=== PATIENT | female | born 1985 | race Caucasian/White ===

== ENCOUNTER 2016-09-27 14:06 | Emergency (ER) | payer MEDICAID ==
[2016-09-27] MEDS ORDERED: ONDANSETRON HCL INJ/PF 4 MG/2 ML SDV IV ONE ×2 (14:48→20:06)
[2016-09-27] MEDS ORDERED: HYDROMORPHONE HCL INJ/PF 2 MG/ML AMPULE IV ONE ×4 (14:48→21:54)
[2016-09-27] MEDS ORDERED: NORMAL SALINE 1000 ML 1,000 ML IV PRN ×3 (14:49→20:06)
[2016-09-27] MEDS ORDERED: LORAZEPAM 1 MG TABLET PO ONE (14:49)
--- NOTE | 2016-09-27 14:52 | ER Document Report ---
ED General - General Stated Complaint: NAUSEA/VOMITING Time Seen by Provider: 09/27/16 14:47 Mode of Arrival: Medic Information source: Patient Notes: This is a 30-year-old female with a history of diabetes, diabetic gastroparesis , hypothyroidism who is brought in by ambulance with nausea, vomiting, epigastric pain since yesterday. Patient states she's not been able to tolerate fluids. Allergies: Reglan, morphine, Benadryl Past surgical history: Call the, appendectomy, bilateral tubal ligation TRAVEL OUTSIDE OF THE [place] IN LAST 30 DAYS: No - HPI Onset: Yesterday Onset/Duration: Gradual Quality of pain: Dull Severity: Moderate Pain Level: 3 Associated symptoms: Nausea, Vomiting. denies: Chills, Diarrhea, Fever, Shortness of breath Exacerbated by: Denies Relieved by: Denies Similar symptoms previously: Yes Recently seen / treated by doctor: No - Related Data Allergies/Adverse Reactions: ketorolac tromethamine [From Toradol] Allergy (Verified 08/11/15 19:23) metoclopramide HCl [From Reglan] Allergy (Verified 08/11/15 19:23) morphine [Morphine] Allergy (Verified 08/11/15 19:23) diphenhydramine HCl [From Benadryl] Adverse Reaction (Verified 08/11/15 19:23) Past Medical History - General Information source: Patient - Social History Smoking Status: Never Smoker Cigarette use (# per day): No Chew tobacco use (# tins/day): No Frequency of alcohol use: None Drug Abuse: None Lives with: Family Family History: Reviewed & Not Pertinent Patient has suicidal ideation: No Patient has homicidal ideation: No - Past Medical History Cardiac Medical History: Reports: None Pulmonary Medical History: Reports: None EENT Medical History: Reports: None Neurological Medical History: Reports: None Endocrine Medical History: Reports: Hx Diabetes Mellitus Type 1, Hx Hypothyroidism Renal/ Medical History: Reports: None Malignancy Medical History: Reports: None GI Medical History: Reports: Other - Diabetic gastroparesis Psychiatric Medical History: Reports: Hx Anxiety, Hx Depression Infectious Medical History: Reports: None Past Surgical History: Reports: Hx Abdominal Surgery - lap x2 for endometriosis , Hx Appendectomy, Hx Breast Surgery - right lumpectomy x2, Hx Cholecystectomy - Immunizations Hx Diphtheria, Pertussis, Tetanus Vaccination: Yes Review of Systems - Review of Systems Constitutional: denies: Chills, Fever EENT: No symptoms reported Cardiovascular: No symptoms reported Respiratory: No symptoms reported Gastrointestinal: See HPI Genitourinary: No symptoms reported Female Genitourinary: No symptoms reported Musculoskeletal: No symptoms reported Skin: No symptoms reported Hematologic/Lymphatic: No symptoms reported Neurological/Psychological: No symptoms reported Physical Exam - Vital signs Vitals: Pulse Resp BP Pulse Ox 78 18 138/89 H 100 09/27/16 15:52 09/27/16 15:52 09/27/16 15:52 09/27/16 15:52 Notes: Physical exam: GENERAL: 30-year-old female, alert and oriented 3, appears anxious, stable vital signs HEAD: Atraumatic, normocephalic. EYES: Pupils equal round and reactive to light, extraocular movements intact, sclera anicteric, conjunctiva are normal. ENT: TMs normal, nares patent, oropharynx clear without exudates. Moist mucous membranes. NECK: Normal range of motion, supple without lymphadenopathy or JVD. LUNGS: Breath sounds clear to auscultation bilaterally and equal. No wheezes rales or rhonchi. HEART: Regular rate and rhythm without murmurs, rubs or gallops. ABDOMEN: Soft, normoactive bowel sounds. No tenderness to palpation. No guarding, no rebound. No masses appreciated. EXTREMITIES: Normal range of motion, no pitting or edema. No clubbing or cyanosis. NEUROLOGICAL: Cranial nerves II through XII grossly intact. Normal speech, normal gait. PSYCH: Normal mood, normal affect. SKIN: Warm, Dry, normal turgor, no rashes or lesions noted. Course - Re-evaluation Re-evalutation: 09/27/16 22:11 Note: Patient is feeling better. She has not had complete resolution but she has not vomited since being here. She is ambulating around the room. She looks pretty good at this point. Her repeat Accu-Chek was 480 and normally she states she would cover herself with approximately 7 units of subcutaneous insulin. We will give her that now (she does not have her pump with her). She will follow-up with her primary care doctor and states very. I've given her numbers of other primary care doctors affiliated with the hospital if she has any difficulty getting in with that doctor. Additionally, she has had follow- up for this gastroparesis with a history of an EGD in the past from a GI doctor in [place]. She is now in this area and I will give her the number of the GI doctor affiliated with the hospital. The CT scan showed a dilated gastric consistent with symptoms of diabetic gastroparesis. On physical exam, the patient does not have any evidence of obstruction. She is agreeable to going home and will see how she does over the next day or 2. 09/27/16 22:27 - Vital Signs Vital signs: Temp Pulse Resp BP Pulse Ox 78 18 138/89 H 100 09/27/16 15:52 09/27/16 15:52 09/27/16 15:52 09/27/16 15:52 - Laboratory Result Diagrams: 09/27/16 15:15 09/27/16 15:15 Laboratory results interpreted by me: 09/27/16 09/27/16 09/27/16 15:15 15:15 15:15 WBC 17.2 H RDW 14.2 H Seg Neutrophils % 90.3 H Lymphocytes % 7.0 L Monocytes % 2.3 L Absolute Neutrophils 15.6 H PT 16.0 H Sodium 136.6 L Chloride 96 L Carbon Dioxide 12 L Anion Gap 29 H Glucose 351 H Direct Bilirubin 0.5 H Albumin 5.1 H Urine Protein Urine Glucose (UA) Urine Ketones Urine Blood 09/27/16 15:15 WBC RDW Seg Neutrophils % Lymphocytes % Monocytes % Absolute Neutrophils PT Sodium Chloride Carbon Dioxide Anion Gap Glucose Direct Bilirubin Albumin Urine Protein 30 H Urine Glucose (UA) >=500 H Urine Ketones 80 H Urine Blood SMALL H - Diagnostic Test Radiology reviewed: Image reviewed, Reports reviewed - CT scan shows no obvious obstruction - EKG Interpretation by Me Rate: Normal Rhythm: NSR - EKG shows normal sinus rhythm with a ventricular rate of 74, no acute ST-T wave changes Discharge - Discharge Clinical Impression: diabetic gastroparesis Condition: Stable Disposition: HOME, SELF-CARE Instructions: Nausea or Vomiting, Nonspecific ([facility]) Additional Instructions: Recommendations: Take the Zofran or Phenergan for nausea. Take the oxycodone for pain. Take Pepcid as prescribed. Advance diet slowly: Small amounts of fluids often. Advance as tolerated. Return to the emergency room for worsening pain, persistent vomiting. Follow-up with a primary care doctor in the area: Below is a list of primary care doctors affiliated with the [facility]: Dr. Ying Conley [address], [place] [address] [phone] Dr Spencer Address: [address] [place] [address] [place] [address] Dr De La Rosa Address: [address] [place] [address] [place] [address] Follow-up with a GI doctor: I left the number for Dr. Odom who is a GI doctor who works with the hospital. Prescriptions: Oxycodone HCl 5 mg PO Q6HP PRN #25 tablet PRN Reason: Promethazine HCl [Phenergan 25 mg Supp.rect] 1 supp LA Q6H #12 supp.rect
[2016-09-27] MEDS ORDERED: LIDOCAINE 2% VISCOUS SOLN 20 ML UDCUP PO ONE ×2 (15:35→20:22)
[2016-09-27] MEDS ORDERED: MAG HYDROX/AL HYDROX/SIMETH SUSP 30 ML UDCUP PO ONE ×2 (15:35→20:22)
[2016-09-27] MEDS ORDERED: FAMOTIDINE INJ/PF 20 MG/2 ML SDV IV ONE (15:36)
[2016-09-27 15:39] LABS: APPEARANCE,URINE CLEAR; BILIRUBIN,URINE NEGATIVE (NEGATIVE); GLUCOSE, URINE >=500 mg/dL (NEGATIVE); KETONES,URINE 80 mg/dL (NEGATIVE); LEUKOCYTE ESTERASE,URINE NEGATIVE (NEGATIVE); NITRITE,URINE NEGATIVE (NEGATIVE); PROTEIN,URINE 30 mg/dL (NEGATIVE); URINE SPECIFIC GRAVITY 1.012; UROBILINOGEN,URINE NEGATIVE mg/dL (<2.0)
[2016-09-27 15:50] LABS: ABSOLUTE BASOPHILS # (AUTO) 0.1 10^3/uL (0.0-0.2); ABSOLUTE LYMPHOCYTES (AUTO) 1.2 10^3/uL (0.5-4.7); ABSOLUTE MONOCYTES (AUTO) 0.4 10^3/uL (0.1-1.4); ABSOLUTE NEUT (AUTO) 15.6 10^3/uL (1.7-8.2); BASOPHILS % (AUTO) 0.3 % (0-2); EOSINOPHILS % (AUTO) 0.1 % (0-6); HEMOGLOBIN 14.5 g/dL (12.0-15.5); HGB HCT DIFFERENCE -0.5; MEAN CORPUSCULAR HEMOGLOBIN 31.2 pg (27.0-33.4); MEAN CORPUSCULAR VOLUME 94 fl (80-97); MONOCYTES % (AUTO) 2.3 % (3-13); RED BLOOD COUNT 4.66 10^6/uL (3.72-5.28); RED CELL DISTRIBUTION WIDTH 14.2 % (11.5-14.0); SEGMENTED NEUTROPHILS % (AUTO) 90.3 % (42-78); WHITE BLOOD COUNT 17.2 10^3/uL (4.0-10.5)
[2016-09-27 15:57] LABS: ALANINE AMINOTRANSFERASE 34 U/L (9-52); ALBUMIN 5.1 g/dL (3.5-5.0); ALKALINE PHOSPHATASE 84 U/L (38-126); ASPARTATE AMINO TRANSFERASE 26 U/L (14-36); BILIRUBIN,DIRECT 0.5 mg/dL (0.0-0.4); BLOOD UREA NITROGEN 12 mg/dL (7-20); CALCIUM 9.6 mg/dL (8.4-10.2); CREATININE RESULT 0.93 mg/dL (0.52-1.25); GLUCOSE 351 mg/dL (75-110); LIPASE 62.9 U/L (23-300); MAGNESIUM 1.9 mg/dL (1.6-2.3); TOTAL PROTEIN 8.1 g/dL (6.3-8.2)
[2016-09-27 16:15] LABS: ANION GAP 29 (5-19)
[2016-09-27 16:16] LABS: CARBON DIOXIDE 12 mmol/L (22-30); CHLORIDE 96 mmol/L (98-107); POTASSIUM 4.1 mmol/L (3.6-5.0); SODIUM 136.6 mmol/L (137-145)
[2016-09-27] MEDS ORDERED: PROMETHAZINE HCL 25 MG TABLET PO ONE (16:42)
[2016-09-27] MEDS ORDERED: PROMETHAZINE HCL 25 MG SUPP.RECT PR ONE (21:53)
[2016-09-27] MEDS ORDERED: INSULIN REG, HUMAN 100 UNIT/ML 3 ML VIAL (PYX) SUBCUT ONE (22:11)
[2016-09-27 22:57] VITALS: BP 114/72
--- NOTE | 2016-09-28 13:11 | EKG REPORT ---
SEVERITY:- NORMAL ECG - SINUS RHYTHM : Confirmed by: Magalie Moreno 28-Sep-2016 13:10:29
== END 2016-09-27 22:33 | disposition home or self-care (01) ==
LOC: ER 14:06
DX: E10.43 Type 1 diabetes mellitus with diabetic autonomic (poly)neuropathy (principal); K31.84 Gastroparesis; R11.2 Nausea with vomiting, unspecified; R10.13 Epigastric pain; Z88.5 Allergy status to narcotic agent; Z88.8 Allergy status to other drugs, medicaments and biological substances; Z90.49 Acquired absence of other specified parts of digestive tract
CPT/HCPCS: 93005; 96376; 99285; 96361; 96374; 96375; 36415; 82962; 83690; 83735; 85025; 85610; 80053; 81001; 71010; 74177; 93010; J3490 ×4; J1170; J1815; J2405; J7030; S0028

== ENCOUNTER 2016-09-29 11:41 | Inpatient (IN) | payer MEDICAID ==
[2016-09-29] MEDS ORDERED: NORMAL SALINE 1000 ML 2,000 ML IV ONE (11:43)
--- NOTE | 2016-09-29 12:06 | ER Document Report ---
ED Blood Sugar Problem - General Chief Complaint: High Blood Sugar Stated Complaint: BLOOD PRESSURE PROBELM Time Seen by Provider: 09/29/16 11:43 Mode of Arrival: Medic Information source: Patient Notes: 30 yo insulin dependent diabetic female insulin pump fell off yesterday at home , boyfriend does not know how to replace it. Pt has persostamt upper abdominal pain with vomiting and diarrhea. Seen in ER 2 days ago and dx gastroparesis but has gotten worse since. Has not been in DKA for a long time. She is Tachypneic, tachycardic, hypertensive, and dehydrated. Smells of acetone. TRAVEL OUTSIDE OF THE [place] IN LAST 30 DAYS: No - Related Data Allergies/Adverse Reactions: ketorolac tromethamine [From Toradol] Allergy (Verified 08/11/15 19:23) metoclopramide HCl [From Reglan] Allergy (Verified 08/11/15 19:23) morphine [Morphine] Allergy (Verified 08/11/15 19:23) diphenhydramine HCl [From Benadryl] Adverse Reaction (Verified 08/11/15 19:23) Home Medications: Current Home Medications Gabapentin [Neurontin 300 mg Capsule] 300 mg PO QHS 09/29/16 [History] Insulin Aspart [Novolog Insulin 100 Unit/1 ml 10 ml] 0 unit SUBCUT ASDIR PRN [History] Levothyroxine Sodium [Synthroid] 250 mcg PO DAILY 09/29/16 [History] Oxycodone HCl [Oxy-Ir 5 mg Tablet] 5 mg PO Q6HP PRN 09/29/16 [History] Promethazine HCl [Phenergan 25 mg Supp.rect] 25 mg NM Q6HP PRN 09/29/16 [History ] Past Medical History - General Information source: Patient - Social History Smoking Status: Never Smoker Frequency of alcohol use: None Drug Abuse: None Lives with: Family Family History: Reviewed & Not Pertinent Endocrine Medical History: Reports: Hx Diabetes Mellitus Type 1, Hx Hypothyroidism Psychiatric Medical History: Reports: Hx Anxiety, Hx Depression Past Surgical History: Reports: Hx Abdominal Surgery - lap x2 for endometriosis , Hx Appendectomy, Hx Breast Surgery - right lumpectomy x2, Hx Cholecystectomy - Immunizations Hx Diphtheria, Pertussis, Tetanus Vaccination: Yes Review of Systems - Review of Systems Constitutional: See HPI EENT: No symptoms reported Cardiovascular: No symptoms reported Respiratory: See HPI Gastrointestinal: See HPI Genitourinary: No symptoms reported Female Genitourinary: No symptoms reported Musculoskeletal: No symptoms reported Skin: No symptoms reported Hematologic/Lymphatic: No symptoms reported Neurological/Psychological: No symptoms reported Physical Exam - Vital signs Vitals: Temp Pulse Resp BP Pulse Ox 94.2 F L 89 32 H 155/89 H 100 09/29/16 11:44 09/29/16 11:44 09/29/16 11:44 09/29/16 11:44 09/29/16 11:44 Interpretation: Tachypneic - General General appearance: Alert, Anxious - HEENT Head: Normocephalic, Atraumatic Eyes: Normal Conjunctiva: Normal Pupils: PERRL Mucous membranes: Dry Pharynx: Normal Neck: Supple. No: Lymphadenopathy - Respiratory Respiratory status: No respiratory distress Chest status: Nontender Breath sounds: Normal Chest palpation: Normal - Cardiovascular Rhythm: Regular Heart sounds: Normal auscultation Murmur: No - Abdominal Inspection: Normal Distension: No distension Bowel sounds: Normal Tenderness: Tender - epigastrum Organomegaly: No organomegaly. No: Hepatomegaly, Splenomegaly - Back Back: Normal, Nontender. No: CVA tenderness - Extremities General upper extremity: Normal inspection, Nontender, Normal color, Normal ROM , Normal temperature General lower extremity: Normal inspection, Nontender, Normal color, Normal ROM , Normal temperature, Normal weight bearing. No: Vinicius's sign - Neurological Neuro grossly intact: Yes Cognition: Normal Orientation: AAOx4 [place] Coma Scale Eye Opening: Spontaneous [place] Coma Scale Verbal: Oriented [place] Coma Scale Motor: Obeys Commands [place] Coma Scale Total: 15 Speech: Normal Motor strength normal: LUE, RUE, LLE, RLE Sensory: Normal - Psychological Associated symptoms: Normal affect, Anxious - Skin Skin Temperature: Warm Skin Moisture: Dry Skin Color: Normal Skin irregularity: negative: Rash Course - Re-evaluation Re-evalutation: 09/29/16 12:[address] pratt for the insulin drip, no accucheck of chem available yet. They are having to dilute her chemistry. I called the lab. He wants to units regular insulin started as an insulin drip with Accu-Cheks every hour. 09/29/16 13:28 Dr. auguste will admit the patient to - Vital Signs Vital signs: Temp Pulse Resp BP Pulse Ox 98.9 F 76 18 125/78 100 10/01/16 15:13 10/01/16 15:13 10/01/16 15:13 10/01/16 15:13 10/01/16 15:13 - Laboratory Result Diagrams: 09/30/16 05:47 10/01/16 16:38 Laboratory results interpreted by me: 09/29/16 09/29/16 09/29/16 12:07 12:07 12:07 WBC 29.7 H Hct 48.4 H MCV 104 H D MCHC 30.2 L RDW 15.3 H Seg Neuts % (Manual) 83 H Band Neutrophils % 8 H Lymphocytes % (Manual) 5 L Metamyelocytes % 1 H Abs Neuts (Manual) 27.3 H VBG pH VBG pCO2 VBG HCO3 Sodium 131.9 L Chloride 93 L Carbon Dioxide < 5 L* Creatinine 1.40 H Est GFR ( Amer) 53 L Est GFR (Non-Af Amer) 44 L Glucose 767 H* POC Glucose Lactic Acid Calcium 8.3 L Magnesium 3.2 H Direct Bilirubin 0.7 H Albumin 5.2 H Urine Protein Urine Glucose (UA) Urine Ketones Urine Blood 09/29/16 09/29/16 09/29/16 12:07 12:14 13:44 WBC Hct MCV MCHC RDW Seg Neuts % (Manual) Band Neutrophils % Lymphocytes % (Manual) Metamyelocytes % Abs Neuts (Manual) VBG pH 6.82 L* VBG pCO2 16.4 L* VBG HCO3 2.6 L Sodium Chloride Carbon Dioxide Creatinine Est GFR ( Amer) Est GFR (Non-Af Amer) Glucose POC Glucose > 550 H* Lactic Acid 5.8 H Calcium Magnesium Direct Bilirubin Albumin Urine Protein Urine Glucose (UA) Urine Ketones Urine Blood 09/29/16 09/29/16 13:44 13:51 WBC Hct MCV MCHC RDW Seg Neuts % (Manual) Band Neutrophils % Lymphocytes % (Manual) Metamyelocytes % Abs Neuts (Manual) VBG pH VBG pCO2 VBG HCO3 Sodium Chloride Carbon Dioxide Creatinine Est GFR ( Amer) Est GFR (Non-Af Amer) Glucose POC Glucose 544 H* Lactic Acid Calcium Magnesium Direct Bilirubin Albumin Urine Protein 30 H Urine Glucose (UA) >=500 H Urine Ketones 80 H Urine Blood MODERATE H Discharge - Discharge Clinical Impression: Vomiting and diarrhea, Upper abdominal pain Diabetic ketoacidosis Qualifiers: Diabetes mellitus type: type 1 Diabetes mellitus complication detail: without coma Qualified Code(s): E10.10 - Type 1 diabetes mellitus with ketoacidosis without coma Admitting Provider: Hospitalist Unit Admitted: ICU
[2016-09-29 12:30] LABS: HEMATOCRIT 48.4 % (36.0-47.0); HEMOGLOBIN 14.6 g/dL (12.0-15.5); MEAN CORPUSCULAR HEMOGLOBIN 31.5 pg (27.0-33.4); MEAN CORPUSCULAR HGB CONC 30.2 g/dL (32.0-36.0); RED BLOOD COUNT 4.64 10^6/uL (3.72-5.28); RED CELL DISTRIBUTION WIDTH 15.3 % (11.5-14.0); WHITE BLOOD COUNT 29.7 10^3/uL (4.0-10.5)
[2016-09-29] MEDS ORDERED: INSULIN REG, HUMAN 100 UNIT/ML 3 ML VIAL (PYX) IV ONE ×2 (12:35→14:17)
[2016-09-29] MEDS ORDERED: NORMAL SALINE 1000 ML 1,000 ML IV ONE (12:36)
[2016-09-29 12:43] LABS: ALANINE AMINOTRANSFERASE 35 U/L (9-52); ALBUMIN 5.2 g/dL (3.5-5.0); ALKALINE PHOSPHATASE 99 U/L (38-126); ASPARTATE AMINO TRANSFERASE 27 U/L (14-36); BILIRUBIN,DIRECT 0.7 mg/dL (0.0-0.4); BILIRUBIN,TOTAL 0.7 mg/dL (0.2-1.3); BLOOD UREA NITROGEN 19 mg/dL (7-20); CALCIUM 8.3 mg/dL (8.4-10.2); CHLORIDE 93 mmol/L (98-107); SODIUM 131.9 mmol/L (137-145)
[2016-09-29 12:47] LABS: HGB HCT DIFFERENCE -4.6
[2016-09-29 12:50] LABS: BAND NEUTROPHILS % (MANUAL) 8 % (3-5); BASOPHILS % (MANUAL) 0 % (0-2); EOSINOPHILS % (MANUAL) 0 % (0-6); LYMPHOCYTES % (MANUAL) 5 % (13-45); TOTAL CELLS COUNTED 100
[2016-09-29 12:52] LABS: ANISOCYTOSIS SLIGHT; BURR CELLS SLIGHT; OVALOCYTES SLIGHT; POIKILOCYTOSIS SLIGHT
[2016-09-29 12:54] LABS: MEAN CORPUSCULAR VOLUME 104 fl (80-97)
[2016-09-29 12:56] LABS: CARBON DIOXIDE < 5 mmol/L (22-30); GLUCOSE 767 mg/dL (75-110)
[2016-09-29] MEDS ORDERED: ACETAMINOPHEN 325 MG TABLET PO ONE (13:30)
[2016-09-29] MEDS ORDERED: LANSOPRAZOLE 30 MG TAB.RAP.DR PO ONE (13:30)
[2016-09-29 13:54] LABS: VENOUS BLOOD BASE EXCESS -30.7 mmol/L; VENOUS BLOOD HCO3 2.6 mmol/L (20-32)
[2016-09-29 13:57] LABS: VENOUS BLOOD PCO2 16.4 mmHg (35-63); VENOUS BLOOD PH 6.82 (7.30-7.42)
[2016-09-29] MEDS ORDERED: DEXTROSE 50%-WATER 25 GM/50 ML DISP.SYRIN IV PRN ×2 (14:12)
[2016-09-29] MEDS ORDERED: NORMAL SALINE 100 ML with INSULIN REGULAR, HUMAN 100 UNIT IV PRN ×2 (14:12)
[2016-09-29] MEDS ORDERED: GLUCAGON,HUMAN RECOMB 1 MG INJ IM PRN (14:12)
[2016-09-29] MEDS ORDERED: DEXTROSE 40% GEL 15 GM TUBE PO PRN ×2 (14:12)
[2016-09-29] MEDS ORDERED: DEXTROSE 5%-1/2 NORMAL SALINE 1,000 ML IV PRN (14:12)
[2016-09-29] MEDS ORDERED: NORMAL SALINE 1000 ML 1,000 ML IV PRN (14:22)
[2016-09-29] MEDS ORDERED: ACETAMINOPHEN 325 MG TABLET PO PRN (14:22)
[2016-09-29 14:39] LABS: APPEARANCE,URINE SLIGHTLY-CLOUDY; BILIRUBIN,URINE NEGATIVE (NEGATIVE); GLUCOSE, URINE >=500 mg/dL (NEGATIVE); KETONES,URINE 80 mg/dL (NEGATIVE); LEUKOCYTE ESTERASE,URINE NEGATIVE (NEGATIVE); NITRITE,URINE NEGATIVE (NEGATIVE); PROTEIN,URINE 30 mg/dL (NEGATIVE); URINE SPECIFIC GRAVITY 1.016; UROBILINOGEN,URINE NEGATIVE mg/dL (<2.0)
[2016-09-29] MEDS ORDERED: IMIPENEM/CILASTATIN SODIUM INJ 500 MG VIAL IV SCH (14:45)
--- NOTE | 2016-09-29 15:12 | PDOC H&P ---
History of Present Illness Admission Date/PCP: BRO LEMUS MD Patient complains of: Abdominal pain History of Present Illness: OBINNA BATEMAN is a 30 year old female, with insulin-dependent diabetes mellitus, diabetic gastroparesis, started to develop abdominal pain, nausea and vomiting, with associated diarrhea. was sick with diarrhea as well. Patient feels cold and chilly but no definite fever. No sweating. There is some mild headache. Patient reports that her insulin pump was broken for the past 24 hours. No dysuria urgency or frequency, no vaginal discharge or bleeding, no cough or sinus congestion or sore throat. Patient started to develop some shortness of breath and abdominal pain got worse, patient's blood sugar was elevated and she felt like she was in DKA and therefore went to the emergency room for evaluation. Blood sugar was elevated greater than 700. Anion gap was greater than 30. The patient was started on intravenous fluid and insulin drip. The patient was then referred for admission. 2 days ago the patient was in the emergency room for evaluation of the same complaint CT of the abdomen and pelvis revealed fluid distended, questionable partial gastric outlet obstruction. Chest x-ray did not reveal any acute infiltrate. Past Medical History Past Medical History: Medication reconciliation pending verification from the patient's pharmacist. Endocrine Medical History: Reports: Diabetes Mellitus Type 1, Hypothyroidism GI Medical History: Reports: Other - Diabetic gastroparesis Musculoskeltal Medical History: Reports: Other - Chronic pain syndrome Psychiatric Medical History: Reports: Depression Past Surgical History Past Surgical History: Reports: Appendectomy, Cholecystectomy, Other - Lumpectomy Social History Information Source: Patient Smoking Status: Current Every Day Smoker Frequency of Alcohol Use: None Hx Recreational Drug Use: No Drugs: None Hx Prescription Drug Abuse: No Family History Family History: DM Parental Family History Reviewed: Yes Children Family History Reviewed: Yes Sibling(s) Family History Reviewed.: Yes Medication/Allergy Home Medications: Gabapentin [Neurontin 300 mg Capsule] 300 mg PO QHS 09/29/16 Insulin Aspart [Novolog Insulin 100 Unit/1 ml 10 ml] 0 unit SUBCUT ASDIR PRN Levothyroxine Sodium [Synthroid] 250 mcg PO DAILY 09/29/16 Oxycodone HCl [Oxy-Ir 5 mg Tablet] 5 mg PO Q6HP PRN 09/29/16 Promethazine HCl [Phenergan 25 mg Supp.rect] [address] Q6HP PRN 09/29/16 Allergies/Adverse Reactions: ketorolac tromethamine [From Toradol] Allergy (Verified 08/11/15 19:23) metoclopramide HCl [From Reglan] Allergy (Verified 08/11/15 19:23) morphine [Morphine] Allergy (Verified 08/11/15 19:23) diphenhydramine HCl [From Benadryl] Adverse Reaction (Verified 08/11/15 19:23) Review of Systems Constitutional: PRESENT: chills. ABSENT: fever(s), headache(s), weight gain, weight loss Eyes: ABSENT: visual disturbances Ears: ABSENT: hearing changes Nose, Mouth, and Throat: ABSENT: mouth pain, sore throat Cardiovascular: PRESENT: dyspnea on exertion. ABSENT: chest pain, edema, orthropnea, palpitations Respiratory: PRESENT: cough - Occupational, dyspnea. ABSENT: hemoptysis, sputum Gastrointestinal: PRESENT: abdominal pain, diarrhea, nausea, vomiting. ABSENT: constipation, hematemesis, hematochezia, melena Genitourinary: ABSENT: difficulty urinating, dysuria, hematuria Musculoskeletal: ABSENT: joint swelling Integumentary: ABSENT: pruritus, rash, wounds Neurological: ABSENT: abnormal gait, abnormal speech, confusion, dizziness, focal weakness, syncope Psychiatric: ABSENT: anxiety, depression, homidical ideation, suicidal ideation Endocrine: ABSENT: cold intolerance, heat intolerance, polydipsia, polyuria Hematologic/Lymphatic: ABSENT: easy bleeding, easy bruising Physical Exam Vital Signs: Temp Pulse Resp BP Pulse Ox 94.2 F L 89 30 H 123/81 100 09/29/16 11:44 09/29/16 11:44 09/29/16 13:01 09/29/16 13:00 09/29/16 13:01 Intake & Output 09/28/16 09/29/16 09/30/16 06:59 06:59 06:59 Weight 58.9 kg General appearance: PRESENT: mild distress, well-developed, well-nourished Head exam: PRESENT: atraumatic, normocephalic Eye exam: PRESENT: conjunctiva pink, EOMI, PERRLA. ABSENT: scleral icterus Ear exam: PRESENT: normal external ear exam. ABSENT: drainage Mouth exam: PRESENT: dry mucosa, neck supple, tongue midline Throat exam: ABSENT: post pharyngeal erythema, tonsillar erythema, tonsillar exudate Neck exam: ABSENT: carotid bruit, JVD, lymphadenopathy, thyromegaly Respiratory exam: PRESENT: clear to auscultation shama. ABSENT: rales, rhonchi, wheezes Cardiovascular exam: PRESENT: RRR, +S1, +S2, tachycardia. ABSENT: diastolic murmur, rubs, systolic murmur Pulses: PRESENT: normal dorsalis pedis pul Vascular exam: PRESENT: normal capillary refill GI/Abdominal exam: PRESENT: distended - Mildly, guarding - Follow entirely, hypoactive bowel sounds, soft, tenderness - Diffusely. ABSENT: mass - Exam is limited due to discomfort on palpation, organolmegaly - Exam is limited due to discomfort on palpation, rebound Rectal exam: PRESENT: deferred Extremities exam: PRESENT: full ROM. ABSENT: calf tenderness, clubbing, pedal edema Neurological exam: PRESENT: alert, awake, oriented to person, oriented to place , oriented to time, oriented to situation Psychiatric exam: PRESENT: appropriate affect, normal mood. ABSENT: homicidal ideation, suicidal ideation Skin exam: PRESENT: dry, intact, warm. ABSENT: cyanosis, rash Results Laboratory Results: 09/29/16 12:07 09/29/16 12:07 09/29/16 09/29/16 09/29/16 12:07 12:07 12:07 WBC 29.7 H RBC 4.64 Hgb 14.6 Hct 48.4 H MCV 104 H D MCH 31.5 MCHC 30.2 L RDW 15.3 H Plt Count 276 Seg Neutrophils % Not Reportable Lymphocytes % Not Reportable Monocytes % Not Reportable Eosinophils % Not Reportable Basophils % Not Reportable Absolute Neutrophils Not Reportable Absolute Lymphocytes Not Reportable Absolute Monocytes Not Reportable Absolute Eosinophils Not Reportable Absolute Basophils Not Reportable VBG pH VBG pCO2 VBG HCO3 VBG Base Excess Sodium 131.9 L Potassium 5.0 Chloride 93 L Carbon Dioxide < 5 L* Anion Gap ELECTRICAL TECHNICIAN BUN 19 Creatinine 1.40 H Est GFR ( Amer) 53 L Est GFR (Non-Af Amer) 44 L Glucose 767 H* Lactic Acid Calcium 8.3 L Magnesium 3.2 H Total Bilirubin 0.7 AST 27 ALT 35 Alkaline Phosphatase 99 Total Protein 8.0 Albumin 5.2 H Urine Color Urine Appearance Urine pH Ur Specific [place] Urine Protein Urine Glucose (UA) Urine Ketones Urine Blood Urine Nitrite Ur Leukocyte Esterase Urine WBC (Auto) Urine RBC (Auto) 09/29/16 09/29/16 09/29/16 12:07 13:44 13:44 WBC RBC Hgb Hct MCV MCH MCHC RDW Plt Count Seg Neutrophils % Lymphocytes % Monocytes % Eosinophils % Basophils % Absolute Neutrophils Absolute Lymphocytes Absolute Monocytes Absolute Eosinophils Absolute Basophils VBG pH 6.82 L* VBG pCO2 16.4 L* VBG HCO3 2.6 L VBG Base Excess -30.7 Sodium Potassium Chloride Carbon Dioxide Anion Gap BUN Creatinine Est GFR ( Amer) Est GFR (Non-Af Amer) Glucose Lactic Acid 5.8 H Calcium Magnesium Total Bilirubin AST ALT Alkaline Phosphatase Total Protein Albumin Urine Color YELLOW Urine Appearance SLIGHTLY-CLOUDY Urine pH 5.0 Ur Specific [place] 1.016 Urine Protein 30 H Urine Glucose (UA) >=500 H Urine Ketones 80 H Urine Blood MODERATE H Urine Nitrite NEGATIVE Ur Leukocyte Esterase NEGATIVE Urine WBC (Auto) 1 Urine RBC (Auto) 0 Assessment & Plan - Diagnosis (1) Sepsis Qualifiers: Sepsis type: sepsis due to unspecified organism Qualified Code(s): A41.9 - Sepsis, unspecified organism Is this a current diagnosis for this admission?: Yes (2) Colitis Is this a current diagnosis for this admission?: Yes (3) Diabetic keto-acidosis Qualifiers: Diabetes mellitus type: type 1 Diabetes mellitus complication detail: without coma Qualified Code(s): E10.10 - Type 1 diabetes mellitus with ketoacidosis without coma Is this a current diagnosis for this admission?: Yes (4) Gastroparesis Is this a current diagnosis for this admission?: Yes (5) Hypothyroidism (acquired) Is this a current diagnosis for this admission?: Yes (6) Chronic pain syndrome Is this a current diagnosis for this admission?: Yes (7) Anxiety and depression Is this a current diagnosis for this admission?: Yes - Time Time Spent: 50 to 70 Minutes - Inpatient Certification Based on my medical assessment, after consideration of the patient's comorbidities, presenting symptoms, or acuity I expect that the services needed warrant INPATIENT care.: Yes I certify that my determination is in accordance with my understanding of Medicare's requirements for reasonable and necessary INPATIENT services [42 CFR 412.3e].: Yes Medical Necessity: Significant Comorbidiites Make Outpatient Treatment Too Risky , Need Close Monitoring Due to Risk of Patient Decompensation, Need For IV Fluids, Risk of Diagnosis Which Will Require Inpatient Eval/Care/Monitoring Post Hospital Care: D/C Dentist Attendant Documentation - Plan Summary Plan Summary: Admit to the intensive care unit. We will give a bolus of insulin and increase the insulin drip started in the emergency room. We will obtain a chest x-ray, as well as a KUB. We will culture the blood and urine. Begin broad-spectrum antibiotic with Primaxin. I will hydrate patient with normal saline, monitor anion gap, and if still elevated, change IV fluids to dextrose containing solution and maintain on till the patient's anion gap normalized. We will serially monitor electrolytes. I will keep her nothing by mouth except medications. I will obtain stool for Clostridium difficile toxin as well as culture. DVT prophylaxis with Lovenox will be placed.
[2016-09-29] MEDS ORDERED: ENOXAPARIN SODIUM INJ 40 MG/0.4 ML DISP.SYRIN SUBCUT ONE (15:30)
[2016-09-29] MEDS ORDERED: LORAZEPAM INJ 2 MG/1 ML VIAL ONE (17:13)
[2016-09-29] MEDS: HYDROMORPHONE HCL INJ/PF 2 MG/ML AMPULE IV PRN ×2 (17:14→21:45)
[2016-09-29] MEDS ORDERED: POTASSIUM CHLORIDE 20 MEQ/50 ML RTU IV PRN (17:21)
[2016-09-29] MEDS ORDERED: LORAZEPAM INJ 2 MG/1 ML VIAL IV PRN (17:28)
--- NOTE | 2016-09-29 18:19 | OPERATIVE REPORT E ---
Operative Report NAME: OBINNA BATEMAN : 1985 AGE: 30Y DATE OF SURGERY: 09/29/2016 ROOM: 611 PREOPERATIVE DIAGNOSES: 1. Poor veins for IV access. 2. Patient with diabetic ketoacidosis. POSTOPERATIVE DIAGNOSIS: 1. Poor veins for IV access. 2. Patient with diabetic ketoacidosis. OPERATION: Placement of right subclavian triple-lumen catheter. SURGEON: NURA FOX M.D. ANESTHESIA: Local. INDICATIONS: This is a 30-year-old female admitted for DKA and needed IV access. DESCRIPTION OF PROCEDURE: The patient was placed in Trendelenburg position, and the right neck and chest were then prepped and draped in the usual sterile fashion. Local anesthesia infiltrated along the right infraclavicular area and the right subclavian punctured and guidewire passed through the needle into the superior vena cava. The needle was removed and the puncture site dilated with an 11-blade. Dilator was then passed through guidewire to the entry site and towards the area of superior vena cava. Next, the dilator was removed and triple-lumen catheter placed through the guidewire towards the area of the superior vena cava. About 17 cm of the catheter was placed through. Catheter was then anchored to the skin with 3-0 silk. The patient did have local anesthesia infiltrated around the puncture site earlier. Next, a Biopatch was then placed at the entry site, and a transparent dressing was used to dress over the Biopatch and catheter. The patient tolerated the procedure well. A chest x-ray will be obtained for placement. The 3 ports of the triple-lumen catheter easily aspirated blood and easily injected saline. DICTATING PHYSICIAN: NURA FOX M.D. [id number] PHY#: [id number] ID: [id number] JOB#: [id number] ACCT: [id number] cc:NURA FOX M.D. >
[2016-09-29 18:51] LABS: BLOOD UREA NITROGEN 16 mg/dL (7-20); CALCIUM 7.1 mg/dL (8.4-10.2); CREATININE RESULT 1.12 mg/dL (0.52-1.25); GLUCOSE 309 mg/dL (75-110)
[2016-09-29] MEDS: IMIPENEM/CILASTATIN SODIUM 500 MG in NORMAL SALINE 100 ML IV SCH ×2 (18:57→23:25)
[2016-09-29 19:04] LABS: CHLORIDE 108 mmol/L (98-107); SODIUM 138.6 mmol/L (137-145)
[2016-09-29] MEDS: ONDANSETRON HCL INJ/PF 4 MG/2 ML SDV IV PRN (19:04)
[2016-09-29 19:09] LABS: POTASSIUM 3.5 mmol/L (3.6-5.0)
[2016-09-29 19:11] LABS: CARBON DIOXIDE < 5 mmol/L (22-30)
[2016-09-29] MEDS: FAMOTIDINE INJ/PF 20 MG/2 ML SDV IV SCH (21:45)
[2016-09-29] MEDS: DEXTROSE 5%-1/2 NORMAL SALINE 1,000 ML IV PRN (21:47)
[2016-09-29] MEDS ORDERED: FAMOTIDINE INJ/PF 20 MG/2 ML SDV IV SCH (22:00)
[2016-09-29 22:55] LABS: BLOOD UREA NITROGEN 13 mg/dL (7-20); CHLORIDE 112 mmol/L (98-107); CREATININE RESULT 0.94 mg/dL (0.52-1.25); GLUCOSE 131 mg/dL (75-110); POTASSIUM 3.9 mmol/L (3.6-5.0); SODIUM 140.2 mmol/L (137-145)
[2016-09-29 23:04] LABS: ANION GAP 21 (5-19)
[2016-09-29 23:06] LABS: CARBON DIOXIDE 7 mmol/L (22-30)
[2016-09-29] MEDS ORDERED: CALCIUM GLUCONATE 1000 MG/10 ML INJ IV ONE (23:21)
[2016-09-29] MEDS ORDERED: CALCIUM GLUCONATE 1,000 MG in DEXTROSE 5%-WATER 50 ML IV ONE (23:30)
[2016-09-30 00:58] LABS: FREE T3 1.39 pg/mL (2.77-5.27)
[2016-09-30 02:40] LABS: ANION GAP 16 (5-19); BLOOD UREA NITROGEN 12 mg/dL (7-20); CALCIUM 7.5 mg/dL (8.4-10.2); CHLORIDE 111 mmol/L (98-107); CREATININE RESULT 0.82 mg/dL (0.52-1.25); GLUCOSE 78 mg/dL (75-110); POTASSIUM 3.5 mmol/L (3.6-5.0); SODIUM 136.6 mmol/L (137-145)
[2016-09-30 02:54] LABS: CARBON DIOXIDE 10 mmol/L (22-30)
[2016-09-30] MEDS ORDERED: POTASSI CL 20 MEQ/D5-1/2NS 1L 1,000 ML IV PRN (03:39)
[2016-09-30] MEDS: IMIPENEM/CILASTATIN SODIUM 500 MG in NORMAL SALINE 100 ML IV SCH (05:41)
[2016-09-30] MEDS: HYDROMORPHONE HCL INJ/PF 2 MG/ML AMPULE IV PRN ×5 (05:53→22:35)
[2016-09-30 05:55] LABS: ABSOLUTE BASOPHILS # (AUTO) 0.1 10^3/uL (0.0-0.2); ABSOLUTE LYMPHOCYTES (AUTO) 1.2 10^3/uL (0.5-4.7); ABSOLUTE MONOCYTES (AUTO) 0.6 10^3/uL (0.1-1.4); ABSOLUTE NEUT (AUTO) 15.7 10^3/uL (1.7-8.2); BASOPHILS % (AUTO) 0.3 % (0-2); EOSINOPHILS % (AUTO) 0.1 % (0-6); HEMOGLOBIN 13.3 g/dL (12.0-15.5); HGB HCT DIFFERENCE 0.9; LYMPHOCYTES % (AUTO) 6.8 % (13-45); MEAN CORPUSCULAR HEMOGLOBIN 31.6 pg (27.0-33.4); MEAN CORPUSCULAR HGB CONC 34.2 g/dL (32.0-36.0); MONOCYTES % (AUTO) 3.5 % (3-13); RED BLOOD COUNT 4.22 10^6/uL (3.72-5.28); RED CELL DISTRIBUTION WIDTH 13.9 % (11.5-14.0); SEGMENTED NEUTROPHILS % (AUTO) 89.3 % (42-78); WHITE BLOOD COUNT 17.6 10^3/uL (4.0-10.5)
[2016-09-30 06:03] LABS: MEAN CORPUSCULAR VOLUME 93 fl (80-97)
[2016-09-30 06:06] LABS: BLOOD UREA NITROGEN 11 mg/dL (7-20); CALCIUM 7.2 mg/dL (8.4-10.2); CHLORIDE 109 mmol/L (98-107); CREATININE RESULT 0.86 mg/dL (0.52-1.25); GLUCOSE 137 mg/dL (75-110); LIPASE 61.5 U/L (23-300); MAGNESIUM 2.4 mg/dL (1.6-2.3); PHOSPHORUS 0.7 mg/dL (2.5-4.5); POTASSIUM 3.6 mmol/L (3.6-5.0); SODIUM 133.1 mmol/L (137-145)
[2016-09-30 06:11] LABS: AMYLASE < 30 U/L (30-110)
[2016-09-30 06:19] LABS: ANION GAP 16 (5-19); CARBON DIOXIDE 8 mmol/L (22-30)
[2016-09-30] MEDS ORDERED: INSULIN REG, HUMAN 100 UNIT/ML 3 ML VIAL (PYX) SUBCUT PRN (08:33)
[2016-09-30] MEDS: ENOXAPARIN SODIUM INJ 40 MG/0.4 ML DISP.SYRIN SUBCUT SCH (08:35)
[2016-09-30] MEDS ORDERED: NORMAL SALINE 1000 ML 1,000 ML IV PRN ×2 (08:41→10:22)
--- NOTE | 2016-09-30 08:47 | PDOC PROGRESS REPORT ---
Subjective Progress Note for:: 09/30/16 Subjective:: Feeling better today. Diarrhea is less. Abdominal pain still present but less. Have some nausea, able to tolerate some oral intake. Denies chills or fever. No shortness of breath. No paroxysmal nocturnal dyspnea nor orthopnea. Physical Exam Vital Signs: Temp Pulse Resp BP Pulse Ox 98.6 F 86 22 H 117/81 99 09/30/16 07:56 09/30/16 07:56 09/30/16 07:56 09/30/16 07:56 09/30/16 07:56 Intake & Output 09/29/16 09/30/16 10/01/16 06:59 06:59 06:59 Intake Total 2392 Output Total 2320 15 Balance 72 -15 Weight 62.7 kg General appearance: PRESENT: no acute distress, cooperative Head exam: PRESENT: normocephalic Eye exam: PRESENT: EOMI Mouth exam: PRESENT: moist, neck supple Neck exam: ABSENT: JVD Respiratory exam: PRESENT: clear to auscultation shama. ABSENT: rhonchi, wheezes Cardiovascular exam: PRESENT: RRR. ABSENT: gallop GI/Abdominal exam: PRESENT: hypoactive bowel sounds, soft, tenderness - Mild diffusely Extremities exam: ABSENT: pedal edema Neurological exam: PRESENT: alert, awake, oriented to person, oriented to place , oriented to time, oriented to situation Skin exam: PRESENT: dry, warm. ABSENT: cyanosis Results Laboratory Results: 09/30/16 05:47 09/30/16 05:47 09/29/16 09/29/16 09/29/16 17:35 20:05 22:25 WBC RBC Hgb Hct MCV MCH MCHC RDW Plt Count Seg Neutrophils % Lymphocytes % Monocytes % Eosinophils % Basophils % Absolute Neutrophils Absolute Lymphocytes Absolute Monocytes Absolute Eosinophils Absolute Basophils Sodium 138.6 140.2 Potassium 3.5 L D 3.9 Chloride 108 H 112 H Carbon Dioxide < 5 L* 7 L* Anion Gap Not Reportable 21 H BUN 16 13 Creatinine 1.12 0.94 Est GFR ( Amer) > 60 > 60 Est GFR (Non-Af Amer) 56 L > 60 Glucose 309 H 131 H Lactic Acid 0.6 L Calcium 7.1 L 7.0 L* Phosphorus Magnesium Amylase Lipase TSH Free T4 Free T3 pg/mL 09/29/16 09/30/16 09/30/16 22:25 02:05 05:47 WBC RBC Hgb Hct MCV MCH MCHC RDW Plt Count Seg Neutrophils % Lymphocytes % Monocytes % Eosinophils % Basophils % Absolute Neutrophils Absolute Lymphocytes Absolute Monocytes Absolute Eosinophils Absolute Basophils Sodium 136.6 L 133.1 L Potassium 3.5 L 3.6 Chloride 111 H 109 H Carbon Dioxide 10 L* 8 L* Anion Gap 16 16 BUN 12 11 Creatinine 0.82 0.86 Est GFR ( Amer) > 60 > 60 Est GFR (Non-Af Amer) > 60 > 60 Glucose 78 137 H Lactic Acid Calcium 7.5 L 7.2 L Phosphorus 0.7 L Magnesium 2.4 H Amylase < 30 L Lipase 61.5 TSH 104.00 H Free T4 0.12 L Free T3 pg/mL 1.39 L 09/30/16 05:47 WBC 17.6 H RBC 4.22 Hgb 13.3 Hct 39.0 MCV 93 D MCH 31.6 MCHC 34.2 RDW 13.9 Plt Count 201 Seg Neutrophils % 89.3 H Lymphocytes % 6.8 L Monocytes % 3.5 Eosinophils % 0.1 Basophils % 0.3 Absolute Neutrophils 15.7 H Absolute Lymphocytes 1.2 Absolute Monocytes 0.6 Absolute Eosinophils 0.0 Absolute Basophils 0.1 Sodium Potassium Chloride Carbon Dioxide Anion Gap BUN Creatinine Est GFR ( Amer) Est GFR (Non-Af Amer) Glucose Lactic Acid Calcium Phosphorus Magnesium Amylase Lipase TSH Free T4 Free T3 pg/mL Impressions: KUB X-Ray 09/29/16 00:00 IMPRESSION: Mild gastric distention. No acute findings. Chest X-Ray 09/29/16 17:45 IMPRESSION: INTERVAL PLACEMENT OF CENTRAL LINE DESCRIBED IN SATISFACTORY POSITION WITH NO PNEUMOTHORAX. OTHERWISE NO CHANGE. Assessment & Plan - Diagnosis (1) Sepsis Qualifiers: Sepsis type: sepsis due to unspecified organism Qualified Code(s): A41.9 - Sepsis, unspecified organism Is this a current diagnosis for this admission?: Yes (2) Colitis Is this a current diagnosis for this admission?: Yes (3) Diabetic keto-acidosis Qualifiers: Diabetes mellitus type: type 1 Diabetes mellitus complication detail: without coma Qualified Code(s): E10.10 - Type 1 diabetes mellitus with ketoacidosis without coma Is this a current diagnosis for this admission?: Yes (4) Gastroparesis Is this a current diagnosis for this admission?: Yes (5) Hypothyroidism (acquired) Is this a current diagnosis for this admission?: Yes (6) Chronic pain syndrome Is this a current diagnosis for this admission?: Yes (7) Anxiety and depression Is this a current diagnosis for this admission?: Yes - Time Time Spent with patient: 25-34 minutes - Plan Summary Plan Summary: We are going to transition to subcutaneous insulin, begin diet, monitor electrolytes and replace accordingly. WBC trended down significantly, we will change antibiotic to ciprofloxacin and Flagyl. Continue other medications, her insulin pump is currently not working according to the patient. Transferred to stepdown unit.
[2016-09-30] MEDS: FAMOTIDINE INJ/PF 20 MG/2 ML SDV IV SCH ×2 (09:55→22:35)
[2016-09-30] MEDS: CIPROFLOXACIN 400 MG/D5W RTU 200 ML IV SCH ×2 (09:55→22:34)
[2016-09-30] MEDS: DEXTROSE 5%-1/2 NORMAL SALINE 1,000 ML IV PRN (10:27)
[2016-09-30] MEDS: PHOSPHORUS #1 250 MG TABLET PO SCH ×3 (10:30→22:38)
[2016-09-30] MEDS ORDERED: DEXTROSE 5%-1/2 NORMAL SALINE 1,000 ML IV PRN (11:17)
[2016-09-30] MEDS: METRONIDAZOLE 500 MG/NS RTU 100 ML IV SCH ×2 (12:01→18:20)
[2016-09-30] MEDS: INSULIN LISPRO 100 UNIT/ML 3 ML VIAL SUBCUT SCH ×2 (12:01→17:02)
[2016-09-30] MEDS: NORMAL SALINE 1000 ML 1,000 ML IV PRN (12:02)
[2016-09-30] MEDS: ONDANSETRON HCL INJ/PF 4 MG/2 ML SDV IV PRN ×2 (12:04→17:18)
[2016-09-30 14:20] LABS: ANION GAP 13 (5-19); BLOOD UREA NITROGEN 8 mg/dL (7-20); CALCIUM 7.3 mg/dL (8.4-10.2); CARBON DIOXIDE 14 mmol/L (22-30); CHLORIDE 105 mmol/L (98-107); CREATININE RESULT 0.77 mg/dL (0.52-1.25); GLUCOSE 147 mg/dL (75-110)
[2016-09-30 14:24] LABS: POTASSIUM 2.7 mmol/L (3.6-5.0)
[2016-09-30] MEDS ORDERED: (PENDING PHARMACY ID) (Levothyroxine Sodium [Synthroid] 250 MCG) PO SCH (16:15)
[2016-09-30] MEDS ORDERED: LEVOTHYROXINE SODIUM 0.15 MG TABLET PO ONE (17:00)
[2016-09-30] MEDS ORDERED: LEVOTHYROXINE SODIUM 0.1 MG TABLET PO ONE (17:00)
[2016-09-30] MEDS: POTASSI CL 20 MEQ/50 ML RIDER 50 ML IV SCH ×3 (17:02→20:03)
[2016-09-30] MEDS ORDERED: INSULIN GLARGINE,HUM.REC.ANLOG 300 UNIT/3 ML INSULN.PEN SUBCUT SCH (22:00)
[2016-10-01] MEDS: METRONIDAZOLE 500 MG/NS RTU 100 ML IV SCH ×5 (00:29→23:35)
[2016-10-01] MEDS: ONDANSETRON HCL INJ/PF 4 MG/2 ML SDV IV PRN ×4 (00:37→22:51)
[2016-10-01] MEDS: HYDROMORPHONE HCL INJ/PF 2 MG/ML AMPULE IV PRN ×5 (02:39→21:16)
[2016-10-01] MEDS: NORMAL SALINE 1000 ML 1,000 ML IV PRN (04:46)
[2016-10-01 05:07] LABS: BLOOD UREA NITROGEN 6 mg/dL (7-20); CALCIUM 7.2 mg/dL (8.4-10.2); CHLORIDE 101 mmol/L (98-107); CREATININE RESULT 0.88 mg/dL (0.52-1.25); POTASSIUM 3.2 mmol/L (3.6-5.0)
[2016-10-01 05:23] LABS: SODIUM 129.7 mmol/L (137-145)
[2016-10-01 05:24] LABS: ANION GAP 21 (5-19)
[2016-10-01 05:25] LABS: CARBON DIOXIDE 8 mmol/L (22-30); GLUCOSE 495 mg/dL (75-110)
[2016-10-01] MEDS ORDERED: RINGERS SOLUTION,LACTATED 2,000 ML IV ONE (06:00)
[2016-10-01] MEDS: POTASSI CL 20 MEQ/50 ML RIDER 20 MEQ/50 ML RTUPB IV SCH ×3 (06:20→22:52)
[2016-10-01 06:30] LABS: ADD ON TESTING BLD IN LAB ACKNOWLEDGE
[2016-10-01 06:46] LABS: MAGNESIUM 1.8 mg/dL (1.6-2.3)
[2016-10-01 07:52] LABS: BLOOD UREA NITROGEN 6 mg/dL (7-20); CALCIUM 7.4 mg/dL (8.4-10.2); CHLORIDE 102 mmol/L (98-107); CREATININE RESULT 0.85 mg/dL (0.52-1.25); SODIUM 134.3 mmol/L (137-145)
[2016-10-01] MEDS ORDERED: HYDROMORPHONE HCL INJ/PF 2 MG/ML AMPULE IV PRN (08:18)
[2016-10-01] MEDS ORDERED: NORMAL SALINE 1000 ML 1,000 ML IV PRN (08:18)
[2016-10-01] MEDS ORDERED: DEXTROSE 5%-1/2 NORMAL SALINE 1,000 ML IV PRN (08:22)
[2016-10-01] MEDS ORDERED: NORMAL SALINE 100 ML with INSULIN REGULAR, HUMAN 100 UNIT IV PRN ×2 (08:22)
--- NOTE | 2016-10-01 08:31 | PDOC PROGRESS REPORT ---
Subjective Progress Note for:: 10/01/16 Subjective:: Patient still not eating, but nausea and vomiting is better. Abdominal pain is less. Diarrhea is less. No shortness of breath or chest pain. No pleurisy, no PND or orthopnea. Blood sugar dropping as oral intake is poor. Becoming acidotic again. Physical Exam Vital Signs: Temp Pulse Resp BP Pulse Ox 98.3 F 75 16 127/77 H 100 10/01/16 04:29 10/01/16 04:29 10/01/16 04:29 10/01/16 04:29 10/01/16 04:29 Intake & Output 09/30/16 10/01/16 10/02/16 06:59 06:59 06:59 Intake Total 2392 4946 Output Total 2320 4500 Balance 72 446 Weight 62.7 kg 64.2 kg General appearance: PRESENT: mild distress, other - Hyperventilating Head exam: PRESENT: normocephalic Eye exam: PRESENT: conjunctiva pink, EOMI Mouth exam: PRESENT: moist, neck supple Neck exam: ABSENT: JVD Respiratory exam: PRESENT: clear to auscultation shama. ABSENT: rhonchi, wheezes Cardiovascular exam: PRESENT: RRR, tachycardia GI/Abdominal exam: PRESENT: hypoactive bowel sounds, soft, tenderness - Is less compared to yesterday, diffusely Extremities exam: ABSENT: pedal edema Neurological exam: PRESENT: alert, altered, awake, oriented to person, oriented to place, oriented to time, oriented to situation Skin exam: PRESENT: dry, warm. ABSENT: cyanosis Results Laboratory Results: 09/30/16 05:47 09/30/16 10/01/16 10/01/16 13:41 04:30 04:30 Sodium 132.0 L 129.7 L Potassium 2.7 L* 3.2 L Chloride 105 101 Carbon Dioxide 14 L 8 L* Anion Gap 13 21 H BUN 8 6 L Creatinine 0.77 0.88 Est GFR ( Amer) > 60 > 60 Est GFR (Non-Af Amer) > 60 > 60 Glucose 147 H 495 H* Calcium 7.3 L 7.2 L Phosphorus 1.0 L Magnesium 1.8 Impressions: KUB X-Ray 09/29/16 00:00 IMPRESSION: Mild gastric distention. No acute findings. Chest X-Ray 09/29/16 17:45 IMPRESSION: INTERVAL PLACEMENT OF CENTRAL LINE DESCRIBED IN SATISFACTORY POSITION WITH NO PNEUMOTHORAX. OTHERWISE NO CHANGE. Assessment & Plan - Diagnosis (1) Sepsis Qualifiers: Sepsis type: sepsis due to unspecified organism Qualified Code(s): A41.9 - Sepsis, unspecified organism Is this a current diagnosis for this admission?: Yes (2) Colitis Is this a current diagnosis for this admission?: Yes (3) Diabetic keto-acidosis Qualifiers: Diabetes mellitus type: type 1 Diabetes mellitus complication detail: without coma Qualified Code(s): E10.10 - Type 1 diabetes mellitus with ketoacidosis without coma Is this a current diagnosis for this admission?: Yes (4) Gastroparesis Is this a current diagnosis for this admission?: Yes (5) Hypothyroidism (acquired) Is this a current diagnosis for this admission?: Yes (6) Chronic pain syndrome Is this a current diagnosis for this admission?: Yes (7) Anxiety and depression Is this a current diagnosis for this admission?: Yes - Time Time Spent with patient: 25-34 minutes - Plan Summary Plan Summary: We will bring back the patient on insulin drip. Discontinue subcutaneous insulin. Blood sugar monitoring hourly, serial chemistries to monitor anion gap. Continue electrolyte supplementation and monitoring. Continue antibiotic. Recheck WBC in the morning. Increase Dilaudid to 1 mg but decrease the frequency to every 6 hours.
[2016-10-01 08:32] LABS: ANION GAP 27 (5-19)
[2016-10-01 08:35] LABS: CARBON DIOXIDE 5 mmol/L (22-30); GLUCOSE 488 mg/dL (75-110); POTASSIUM 2.9 mmol/L (3.6-5.0)
[2016-10-01] MEDS ORDERED: INSULIN REG, HUMAN 100 UNIT/ML 3 ML VIAL (PYX) ONE (08:54)
[2016-10-01] MEDS: CIPROFLOXACIN 400 MG/D5W RTU 200 ML IV SCH ×2 (09:23→21:18)
[2016-10-01] MEDS: LEVOTHYROXINE SODIUM 0.15 MG TABLET PO SCH (09:24)
[2016-10-01] MEDS: LEVOTHYROXINE SODIUM 0.1 MG TABLET PO SCH (09:24)
[2016-10-01] MEDS: FAMOTIDINE INJ/PF 20 MG/2 ML SDV IV SCH ×2 (09:24→21:14)
[2016-10-01] MEDS: ENOXAPARIN SODIUM INJ 40 MG/0.4 ML DISP.SYRIN SUBCUT SCH (09:25)
[2016-10-01] MEDS: PHOSPHORUS #1 250 MG TABLET PO SCH ×3 (09:26→16:39)
[2016-10-01 12:42] LABS: ANION GAP 13 (5-19); BLOOD UREA NITROGEN 5 mg/dL (7-20); CALCIUM 7.2 mg/dL (8.4-10.2); CARBON DIOXIDE 14 mmol/L (22-30); CHLORIDE 104 mmol/L (98-107); CREATININE RESULT 0.75 mg/dL (0.52-1.25); GLUCOSE 289 mg/dL (75-110); SODIUM 130.7 mmol/L (137-145)
[2016-10-01 12:53] LABS: POTASSIUM 2.8 mmol/L (3.6-5.0)
[2016-10-01] MEDS: POTASSIUM CHLORIDE 20 MEQ/50 ML RTU IV SCH ×3 (15:32→19:13)
[2016-10-01 17:07] LABS: ANION GAP 13 (5-19); BLOOD UREA NITROGEN 5 mg/dL (7-20); CALCIUM 7.8 mg/dL (8.4-10.2); CARBON DIOXIDE 18 mmol/L (22-30); CHLORIDE 105 mmol/L (98-107); CREATININE RESULT 0.73 mg/dL (0.52-1.25); GLUCOSE 98 mg/dL (75-110); SODIUM 136.2 mmol/L (137-145)
[2016-10-01 17:14] LABS: POTASSIUM 2.8 mmol/L (3.6-5.0)
[2016-10-01] MEDS ORDERED: POTASSI CL 40 MEQ/D5-1/2NS 1L 1,000 ML IV PRN (18:00)
[2016-10-01] MEDS ORDERED: POTASSIUM CHLORIDE 20 MEQ/15 ML UDCUP PO ONE (19:00)
[2016-10-01 21:57] LABS: ANION GAP 11 (5-19); BLOOD UREA NITROGEN 4 mg/dL (7-20); CALCIUM 7.6 mg/dL (8.4-10.2); CARBON DIOXIDE 21 mmol/L (22-30); CHLORIDE 104 mmol/L (98-107); CREATININE RESULT 0.76 mg/dL (0.52-1.25); GLUCOSE 83 mg/dL (75-110); POTASSIUM 3.1 mmol/L (3.6-5.0); SODIUM 135.7 mmol/L (137-145)
[2016-10-01] MEDS: POTASSI CL 20 MEQ/D5NS 1L 20 MEQ/1,000 ML RTUINJ IV PRN (22:56)
[2016-10-01 23:00] LABS: ADD ON TESTING BLD IN LAB ACKNOWLEDGE
[2016-10-01 23:17] LABS: MAGNESIUM 1.6 mg/dL (1.6-2.3)
[2016-10-01] MEDS ORDERED: MAGNESIUM SULFATE/D5W 1 GM/100 ML RTUPB IV ONE (23:42)
[2016-10-02 01:29] LABS: ANION GAP 12 (5-19); BLOOD UREA NITROGEN 4 mg/dL (7-20); CALCIUM 7.3 mg/dL (8.4-10.2); CARBON DIOXIDE 18 mmol/L (22-30); CHLORIDE 105 mmol/L (98-107); CREATININE RESULT 0.72 mg/dL (0.52-1.25); GLUCOSE 213 mg/dL (75-110); POTASSIUM 3.4 mmol/L (3.6-5.0); SODIUM 135.2 mmol/L (137-145)
[2016-10-02] MEDS ORDERED: RINGERS SOLUTION,LACTATED 1,000 ML IV ONE (01:48)
[2016-10-02] MEDS ORDERED: POTASSI CL 20 MEQ/50 ML RIDER 20 MEQ/50 ML RTUPB IV ONE (01:49)
[2016-10-02] MEDS: POTASSI CL 20 MEQ/50 ML RIDER 20 MEQ/50 ML RTUPB IV SCH (02:02)
[2016-10-02] MEDS: ONDANSETRON HCL INJ/PF 4 MG/2 ML SDV IV PRN ×2 (03:08→23:12)
[2016-10-02] MEDS: HYDROMORPHONE HCL INJ/PF 2 MG/ML AMPULE IV PRN ×2 (03:10→21:17)
[2016-10-02] MEDS ORDERED: INSULIN REG, HUMAN 100 UNIT/ML 3 ML VIAL (PYX) ONE (03:57)
[2016-10-02] MEDS: ENOXAPARIN SODIUM INJ 40 MG/0.4 ML DISP.SYRIN SUBCUT SCH (08:00)
[2016-10-02] MEDS: FAMOTIDINE INJ/PF 20 MG/2 ML SDV IV SCH ×2 (10:00→21:19)
[2016-10-02] MEDS: LEVOTHYROXINE SODIUM 0.1 MG TABLET PO SCH (10:00)
[2016-10-02] MEDS: CIPROFLOXACIN 400 MG/D5W RTU 200 ML IV SCH ×2 (10:00→21:18)
[2016-10-02] MEDS: LEVOTHYROXINE SODIUM 0.15 MG TABLET PO SCH (10:00)
[2016-10-02] MEDS: METRONIDAZOLE 500 MG/NS RTU 100 ML IV SCH ×3 (12:00→23:13)
--- NOTE | 2016-10-02 16:37 | PROGRESS NOTE E ---
Progress Note NAME: OBINNA BATEMAN : 1985 AGE: 30Y DATE: 10/02/2016 ROOM: 306 SUBJECTIVE: The patient feels better today. Shortness of breath resolved. Nausea and vomiting much better. Diarrhea resolved. No chills or fever. No chest pain. No PND or orthopnea. OBJECTIVE: VITAL SIGNS: Blood pressure is 125/75, pulse of 82, respirations of 17. Patient is afebrile. GENERAL: Patient is awake. She is not in acute distress. NECK: There is no jugular venous distention. LUNGS: Lung sounds are clear to auscultation bilateral. No wheezing or rales. HEART: Regular with no gallops. ABDOMEN: Soft. Tenderness less today than yesterday. Bowel sounds hypoactive. No rebound. EXTREMITIES: Lower extremity nonedematous. Pupils are present bilateral and equal. Mucosa and nail beds with no cyanosis. LABORATORY: Phosphorus level 0.5, potassium 3.06. Creatinine is normal. Anion gap of 14. Glucose of 161. ASSESSMENT: 1. DIABETIC KETOACIDOSIS. 2. SEPSIS, PROBABLY FROM UNDERLYING COLITIS. 3. INFECTIOUS COLITIS. 4. DIABETIC GASTROPARESIS. 5. ACQUIRED HYPOTHYROIDISM. 6. ANXIETY, DEPRESSION. 7. CHRONIC PAIN SYNDROME. PLAN: We will continue insulin drip for now, begin the patient on diabetic diet, see if she tolerates. If indeed, will transition to subcutaneous insulin. In the meantime, we will replace potassium and phosphate and recheck levels in the morning. Continue other medications and supportive care. DICTATING PHYSICIAN: CAIO BOLANOS M.D. [id number] PHY#: [id number] ID: [id number] JOB#: [id number] ACCT: [id number] cc: >
[2016-10-03 00:23] LABS: ANION GAP 11 (5-19); BLOOD UREA NITROGEN 2 mg/dL (7-20); CALCIUM 7.4 mg/dL (8.4-10.2); CARBON DIOXIDE 21 mmol/L (22-30); CHLORIDE 102 mmol/L (98-107); CREATININE RESULT 0.75 mg/dL (0.52-1.25); GLUCOSE 133 mg/dL (75-110); SODIUM 134.3 mmol/L (137-145)
[2016-10-03 00:32] LABS: POTASSIUM 2.7 mmol/L (3.6-5.0)
[2016-10-03] MEDS: HYDROMORPHONE HCL INJ/PF 2 MG/ML AMPULE IV PRN ×2 (03:18→09:26)
[2016-10-03] MEDS: POTASSI CL 20 MEQ/D5NS 1L 20 MEQ/1,000 ML RTUINJ IV PRN (03:22)
[2016-10-03 03:32] LABS: ADD ON TESTING BLD IN LAB ACKNOWLEDGE
[2016-10-03 03:56] LABS: MAGNESIUM 1.8 mg/dL (1.6-2.3)
[2016-10-03] MEDS: POTASSI CL 20 MEQ/50 ML RIDER 20 MEQ/50 ML RTUPB IV SCH ×2 (05:04→09:29)
[2016-10-03] MEDS: METRONIDAZOLE 500 MG/NS RTU 100 ML IV SCH ×4 (05:06→23:40)
[2016-10-03 06:58] LABS: ANION GAP 10 (5-19); BLOOD UREA NITROGEN 2 mg/dL (7-20); CALCIUM 7.5 mg/dL (8.4-10.2); CARBON DIOXIDE 25 mmol/L (22-30); CHLORIDE 103 mmol/L (98-107); GLUCOSE 109 mg/dL (75-110); PHOSPHORUS 0.6 mg/dL (2.5-4.5); POTASSIUM 3.2 mmol/L (3.6-5.0)
[2016-10-03] MEDS: LEVOTHYROXINE SODIUM 0.1 MG TABLET PO SCH (09:25)
[2016-10-03] MEDS: FAMOTIDINE INJ/PF 20 MG/2 ML SDV IV SCH ×2 (09:25→22:46)
[2016-10-03] MEDS: CIPROFLOXACIN 400 MG/D5W RTU 200 ML IV SCH ×2 (09:26→22:45)
[2016-10-03] MEDS: LEVOTHYROXINE SODIUM 0.15 MG TABLET PO SCH (09:26)
[2016-10-03] MEDS: ENOXAPARIN SODIUM INJ 40 MG/0.4 ML DISP.SYRIN SUBCUT SCH (09:28)
[2016-10-03] MEDS ORDERED: INSULIN REG, HUMAN 100 UNIT/ML 3 ML VIAL (PYX) SUBCUT PRN (11:08)
[2016-10-03] MEDS ORDERED: NORMAL SALINE 1000 ML 1,000 ML IV PRN (11:11)
[2016-10-03] MEDS ORDERED: POTASSIUM CHLORIDE 10 MEQ TABLET.SA PO ONE (11:13)
[2016-10-03] MEDS ORDERED: OXYCODONE-ACETAMINOPHEN 5-325 MG TABLET PO PRN (11:25)
[2016-10-03] MEDS: LORAZEPAM 1 MG TABLET PO PRN ×2 (11:32→22:46)
--- NOTE | 2016-10-03 11:43 | PROGRESS NOTE E ---
Progress Note NAME: OBINNA BATEMAN : 1985 AGE: 30Y DATE: 10/03/2016 ROOM: 306 SUBJECTIVE: The patient continues to feel better. No nausea or vomiting. Tolerating oral intake. No chills or fever. No diarrhea. Abdominal pain is less. Patient remains on insulin drip. Potassium level is low and being replaced. OBJECTIVE: VITAL SIGNS: Blood pressure is 116/77, pulse 72, respirations 20, temperature 98.8. GENERAL: The patient is awake. She is not in acute distress. NECK: There is no jugular venous distention. LUNGS: Lung sounds are clear. HEART: Regular with no gallops or murmurs. ABDOMEN: Soft, nondistended. Bowel sounds were hypoactive. LOWER EXTREMITIES: Nonedematous. Mucosa and nail beds with no cyanosis. LABORATORY: Potassium repeat 3.2. Phosphorus of 0.6. ASSESSMENT: 1. DIABETIC KETOACIDOSIS. 2. SEPSIS SECONDARY TO COLITIS. 3. INFECTIOUS COLITIS. 4. DIABETIC GASTROPARESIS. 5. ACQUIRED HYPOTHYROIDISM. 6. ANXIETY AND DEPRESSION. 7. CHRONIC PAIN SYNDROME. PLAN: We will discontinue insulin drip and begin subcutaneous insulin. We will replace potassium and phosphorus. We will transition to normal saline once off the insulin drip and discontinue dextrose containing IV fluids. Continue current antibiotics for now. DICTATING PHYSICIAN: CAIO BOLANOS M.D. [id number] PHY#: [id number] ID: [id number] JOB#: [id number] ACCT: [id number] cc: >
[2016-10-03] MEDS ORDERED: INSULIN DETEMIR 100 UNIT/ML 3 ML PEN SUBCUT ONE (12:00)
[2016-10-03] MEDS: PHOSPHORUS #1 250 MG TABLET PO SCH ×2 (13:45→23:10)
[2016-10-03] MEDS ORDERED: HYDROMORPHONE HCL INJ/PF 2 MG/ML AMPULE IV ONE (14:30)
[2016-10-03] MEDS: OXYCODONE-ACETAMINOPHEN 5-325 MG TABLET PO PRN (20:53)
[2016-10-04] MEDS: OXYCODONE-ACETAMINOPHEN 5-325 MG TABLET PO PRN ×3 (02:59→13:35)
[2016-10-04] MEDS: PHOSPHORUS #1 250 MG TABLET PO SCH ×2 (06:46→13:35)
[2016-10-04] MEDS: METRONIDAZOLE 500 MG/NS RTU 100 ML IV SCH ×2 (06:47→11:10)
[2016-10-04 07:52] LABS: ANION GAP 8 (5-19); BLOOD UREA NITROGEN 3 mg/dL (7-20); CALCIUM 8.6 mg/dL (8.4-10.2); CARBON DIOXIDE 30 mmol/L (22-30); CHLORIDE 101 mmol/L (98-107); CREATININE RESULT 0.63 mg/dL (0.52-1.25); GLUCOSE 45 mg/dL (75-110); MAGNESIUM 1.5 mg/dL (1.6-2.3); PHOSPHORUS 1.1 mg/dL (2.5-4.5); SODIUM 138.9 mmol/L (137-145)
[2016-10-04 07:58] LABS: POTASSIUM 2.6 mmol/L (3.6-5.0)
[2016-10-04] MEDS: CIPROFLOXACIN 400 MG/D5W RTU 200 ML IV SCH (09:43)
[2016-10-04] MEDS: FAMOTIDINE INJ/PF 20 MG/2 ML SDV IV SCH (09:43)
[2016-10-04] MEDS: LEVOTHYROXINE SODIUM 0.15 MG TABLET PO SCH (09:43)
[2016-10-04] MEDS: LEVOTHYROXINE SODIUM 0.1 MG TABLET PO SCH (09:43)
[2016-10-04] MEDS: ENOXAPARIN SODIUM INJ 40 MG/0.4 ML DISP.SYRIN SUBCUT SCH (09:45)
[2016-10-04] MEDS: POTASSIUM CHLORIDE 10 MEQ TABLET.SA PO SCH ×2 (09:51→13:35)
[2016-10-04 09:56] LABS: ANION GAP 14 (5-19); BLOOD UREA NITROGEN 4 mg/dL (7-20); CALCIUM 7.5 mg/dL (8.4-10.2); CARBON DIOXIDE 16 mmol/L (22-30); CHLORIDE 107 mmol/L (98-107); CREATININE RESULT 0.73 mg/dL (0.52-1.25); GLUCOSE 161 mg/dL (75-110); PHOSPHORUS < 0.5 mg/dL (2.5-4.5); POTASSIUM 3.1 mmol/L (3.6-5.0); SODIUM 136.6 mmol/L (137-145)
[2016-10-04] MEDS ORDERED: INSULIN DETEMIR 100 UNIT/ML 3 ML PEN SUBCUT SCH (10:00)
[2016-10-04 10:04] LABS: ANION GAP 8 (5-19); BLOOD UREA NITROGEN 3 mg/dL (7-20); CALCIUM 7.6 mg/dL (8.4-10.2); CARBON DIOXIDE 24 mmol/L (22-30); CHLORIDE 106 mmol/L (98-107); CREATININE RESULT 0.73 mg/dL (0.52-1.25); GLUCOSE 67 mg/dL (75-110); POTASSIUM 3.3 mmol/L (3.6-5.0)
[2016-10-04] MEDS: LORAZEPAM 1 MG TABLET PO PRN (11:08)
[2016-10-04] MEDS ORDERED: MAGNESIUM SULFATE/D5W 100 ML IV SCH (11:30)
--- NOTE | 2016-10-04 11:51 | PDOC DISCHARGE SUMMARY ---
General - Admit/Disc Date/PCP Admission Date/Primary Care Provider: 09/29/16 14:22 BRO LEMUS MD Discharge Date: 10/04/16 - Discharge Diagnosis (1) Sepsis Is this a current diagnosis for this admission?: Yes (2) Colitis Is this a current diagnosis for this admission?: Yes (3) Diabetic keto-acidosis Is this a current diagnosis for this admission?: Yes (4) Gastroparesis Is this a current diagnosis for this admission?: Yes (5) Hypokalemia Is this a current diagnosis for this admission?: Yes (6) Hypomagnesemia Is this a current diagnosis for this admission?: Yes (7) Hypophosphatemia Is this a current diagnosis for this admission?: Yes (8) Anxiety and depression Is this a current diagnosis for this admission?: Yes (9) Chronic pain syndrome Is this a current diagnosis for this admission?: Yes (10) Hypothyroidism (acquired) Is this a current diagnosis for this admission?: Yes - Additional Information Discharge Diet: Diabetic - no concentrated sweets Discharge Activity: Activity As Tolerated, Balance Activity w/Rest Home Medications: Gabapentin [Neurontin 300 mg Capsule] 300 mg PO QHS 09/29/16 Insulin Aspart [Novolog Insulin (Aspart) 100 unit/mL] 0 unit SUBCUT ASDIR PRN Levothyroxine Sodium [Synthroid] 250 mcg PO DAILY 09/29/16 Promethazine HCl [Phenergan 25 mg Supp.rect] 25 mg RI Q6HP PRN 09/29/16 Ciprofloxacin HCl [Cipro 500 mg Tablet] 500 mg PO BID #10 tablet 10/04/16 Insulin Detemir [Levemir Insulin 100 units/mL] 25 unit SUBCUT DAILY 30 Days Metronidazole [Flagyl 500 mg Tablet] 500 mg PO TID #15 tablet 10/04/16 Naph,Mb-Db/K pH,Mbdb [Neutra-Phos Packet] 1 each PO TID #15 powd.pack 10/04/16 Oxycodone HCl [Oxy-Ir 5 mg Tablet] 5 mg PO Q6HP PRN #15 tablet 10/04/16 Zolpidem Tartrate [Ambien 5 mg Tablet] 5 mg PO HSP PRN #20 tablet 10/04/16 Additional Information: 1. Resume insulin pump as previously taken. 2. Repeat potassium, phosphorus and magnesium level as out-patient w/ primary physician in 1 week. 3. Increase oral fluids. History of Present Illness Patient complains of: Nausea, vomiting, diarrhea History of Present Illness: OBINNA BATEMAN is a 30 year old female, with insulin-dependent diabetes mellitus, diabetic gastroparesis, started to develop abdominal pain, nausea and vomiting, with associated diarrhea. was sick with diarrhea as well. Patient feels cold and chilly but no definite fever. No sweating. There is some mild headache. Patient reports that her insulin pump was broken for the past 24 hours. No dysuria urgency or frequency, no vaginal discharge or bleeding, no cough or sinus congestion or sore throat. Patient started to develop some shortness of breath and abdominal pain got worse, patient's blood sugar was elevated and she felt like she was in DKA and therefore went to the emergency room for evaluation. Blood sugar was elevated greater than 700. Anion gap was greater than 30. The patient was started on intravenous fluid and insulin drip. The patient was then referred for admission. 2 days ago the patient was in the emergency room for evaluation of the same complaint CT of the abdomen and pelvis revealed fluid distended, questionable partial gastric outlet obstruction. Chest x-ray did not reveal any acute infiltrate. Hospital Course Hospital Course: The patient was admitted to ICU. Intravenous insulin and IVF were started. Serial chemistries performed and electrolytes were monitored and replaced. Eventually anion gap normalized, she was transitioned to SC insulin, diet was begun and patient transfered to stepdown unit. In terms of elevated WBC and diarrhea, she was started on broad spectrum antibiotic IV. Cultures were performed and were negative. C. dificille toxin was negative. Patient reportedly w/ pneumonia on CXRay but patient w/o signs and sx of definite pneumonia. While in floor, patient unable to eat well and therefore BS dropped , insulin held and patient went back to DKA. IV insulin resumed and continued until she is able to tolerate oral intake. Then she was transitioned to SC insulin. She now states that her pump is working and had lots of insulin at home. She stops the medication when she feels sick. She requested for RX for lantus as back -up in case she ran out of her insulin pump and her home lantus had . Course also noted for anxiety and pain treated w/ anxiolytics and IV narcotics. The rest of hospital stay is unremarkable. Physical Exam Vital Signs: Temp Pulse Resp BP Pulse Ox 98.7 F 69 18 108/62 97 10/04/16 07:16 10/04/16 07:16 10/04/16 07:16 10/04/16 07:16 10/04/16 07:16 Intake & Output 10/03/16 10/04/16 10/05/16 06:59 06:59 06:59 Intake Total 2800 2862 Output Total 900 Balance 2800 1962 Weight 64.1 kg 61 kg General appearance: PRESENT: no acute distress, cooperative Head exam: PRESENT: normocephalic Eye exam: PRESENT: EOMI Mouth exam: PRESENT: moist, neck supple Neck exam: ABSENT: JVD Respiratory exam: PRESENT: clear to auscultation shama. ABSENT: rhonchi, wheezes Cardiovascular exam: PRESENT: RRR. ABSENT: gallop GI/Abdominal exam: PRESENT: normal bowel sounds, soft. ABSENT: distended, tenderness Extremities exam: ABSENT: pedal edema Neurological exam: PRESENT: alert, awake, oriented to person, oriented to place , oriented to time, oriented to situation Skin exam: PRESENT: dry, warm. ABSENT: cyanosis Results Laboratory Results: 09/30/16 05:47 10/04/16 05:30 10/02/16 10/02/16 10/04/16 04:59 08:59 05:30 Sodium 136.6 L 138.0 138.9 Potassium 3.1 L 3.3 L 2.6 L* Chloride 107 106 101 Carbon Dioxide 16 L 24 30 Anion Gap 14 8 8 BUN 4 L 3 L 3 L Creatinine 0.73 0.73 0.63 Est GFR ( Amer) > 60 > 60 > 60 Est GFR (Non-Af Amer) > 60 > 60 > 60 Glucose 161 H 67 L 45 L Calcium 7.5 L 7.6 L 8.6 Phosphorus < 0.5 L 1.1 L Magnesium 1.5 L Impressions: KUB X-Ray 09/29/16 00:00 IMPRESSION: Mild gastric distention. No acute findings. Chest X-Ray 09/29/16 17:45 IMPRESSION: INTERVAL PLACEMENT OF CENTRAL LINE DESCRIBED IN SATISFACTORY POSITION WITH NO PNEUMOTHORAX. OTHERWISE NO CHANGE. Qualifiers PATEINT BEING DISCHARGED WITH ANY OF THE FOLLOWING DIAGNOSIS?: No Plan Discharge Plan: Follow-up w/ primary physician in 1 week. Time Spent: Less than 30 Minutes
[2016-10-04 15:10] VITALS: BP 141/87
== END 2016-10-04 18:22 | disposition home or self-care (01) | DRG 637 ==
LOC: ER 11:41 → EH 14:22 → UNDOADMIN 14:40 → EH 14:40 → ICU 17:00 → 3N 09-30 12:50
PROC: 02HV33Z Insertion of Infusion Device into Superior Vena Cava, Percutaneous Approach (ICD-10-PCS; principal; 2016-09-29)
DX: E10.10 Type 1 diabetes mellitus with ketoacidosis without coma (principal); A41.9 Sepsis, unspecified organism; E03.9 Hypothyroidism, unspecified; E10.43 Type 1 diabetes mellitus with diabetic autonomic (poly)neuropathy; K31.84 Gastroparesis; K52.9 Noninfective gastroenteritis and colitis, unspecified; E87.6 Hypokalemia; E83.42 Hypomagnesemia; E83.39 Other disorders of phosphorus metabolism; G89.4 Chronic pain syndrome; F41.8 Other specified anxiety disorders; F17.210 Nicotine dependence, cigarettes, uncomplicated; Z96.41 Presence of insulin pump (external) (internal); Z79.4 Long term (current) use of insulin; Z79.891 Long term (current) use of opiate analgesic; Z79.899 Other long term (current) drug therapy
CPT/HCPCS: 36415; 51701; 71010; 74000; 80048; 80053; 81001; 81025; 82150; 82803; 82962; 83605; 83690; 83735; 84100; 84436; 84439; 84443; 84481; 85025; 87040; 87045; 87086; 87205; 87493; 96360; 99285; C1751; J0610; J0743; J0744; J1170; J1650; J1815; J2060; J2405; J3475; J3480; J3490; J7030; J7120; S0028